=== PATIENT | female | born 1960 | race African-American/Black ===

== ENCOUNTER 2020-08-26 06:14 | Inpatient (IN) | payer OTHER ==
[2020-08-26] VITALS (13 sets, daily range): BP systolic 114–156; BP diastolic 61–82
[~2020-08-26] VITALS: Ht 160 cm; Wt 96.2 kg
[~2020-08-26 06:14] MED LIST: AMLODIPINE BESYL5 MG ORAL; GINKGO BILOBA120 M1 PO; MULTIVITAMINS1 EAC2 ORAL; TOPIRAMATE100 MG ORAL
[2020-08-26] MEDS ORDERED: ceFAZolin sod 1 GM in NS 55 ML IVPB ONE (07:00)
[2020-08-26] MEDS ORDERED: Vancomycin 1gm vial IVPB ONE ×2 (07:17→11:03)
[2020-08-26] MEDS ORDERED: Thrombin 5000 units TOPIC ONE (07:18)
[2020-08-26] MEDS ORDERED: Gelfoam Size TOPIC ONE ×2 (07:18→07:19)
[2020-08-26] MEDS ORDERED: Ropivacaine 5mg/ml Vial 30ml INJ ONE (07:18)
[2020-08-26] MEDS ORDERED: Bacitracin 50000 Units Vial ONE (07:19)
[2020-08-26] MEDS ORDERED: EPINEPHrine 1mg/1ml Amp ONE ×2 (07:19→11:08)
[2020-08-26] MEDS ORDERED: Lidocaine 1% Plain 30 ml INJ ONE (07:20)
[2020-08-26] MEDS ORDERED: Midazolam 2mg/2ml Inj ONE (07:27)
[2020-08-26] MEDS ORDERED: fentaNYL 100 mcg/2 mL IV ONE (07:27)
[2020-08-26] MEDS ORDERED: Lidocaine 1% MPF 10mg/ml 5ml ONE (07:27)
[2020-08-26] MEDS ORDERED: Rocuronium Bromide 50mg/5ml Inj IV ONE (07:36)
[2020-08-26] MEDS ORDERED: Succinylcholine 20mg/ml 10ml vial ONE (07:36)
[2020-08-26] MEDS ORDERED: LR 1000ml ONE (07:50)
[2020-08-26] MEDS ORDERED: Sterile Water Irrig 2000ml IRRIG ONE (07:50)
[2020-08-26] MEDS ORDERED: NS Irrig 2000ml IRRIG ONE (07:50)
[2020-08-26] MEDS ORDERED: Heparin 5000 units/ml inj ONE (07:59)
--- NOTE | 2020-08-26 09:08 | Pre-Procedure Note/Attestation ---
Pre-Procedure Note/Attestation Complete Prior to Procedure Procedure Narrative: ant/post fusion with decompression L5S1 Indications for Procedure Pre-Operative Diagnosis: Discopathy L5S1 Attestation I attest that I discussed the nature of the procedure; its benefits; risks and complications; and alternatives (and the risks and benefits of such alternatives), prior to the procedure, with the patient (or the patient's legal jewelry sales representative). I attest that, if there was a reasonable possibility of needing a blood transfusion, the patient (or the patient's legal jewelry sales representative) was given the [facility] standardized written summary, pursuant to the Remington Ghazala Blood Safety Act ([place] Health and Safety Code # 1645, as amended). I attest that I re-evaluated the patient just prior to the surgery and that there has been no change in the patient's H&P, except as documented below: Nilesh Christian MD Aug 26, 2020 09:08
--- NOTE | 2020-08-26 09:10 | Brief Operative Note ---
Immediate Post Operative Note Operative Note Pre-op Diagnosis: Discopathy L5S1 Procedure: Ant/post fusion L5S1 with decompression Post-op Diagnosis: same as pre-op Findings: consistent w/pre-op dx studies Surgeon: tangela Flow Specialist: jayce Additional Surgeons: Ilia vascular Anesthesiologist: anish Anesthesia: general Specimen: yes - disc Complications: none Condition: stable Fluids: 1L Estimated Blood Loss: minimal - 100 Drains: none Implant(s) used?: Yes - 4web ant cage and staaylinink Nilesh Christian MD Aug 26, 2020 09:10
[2020-08-26] MEDS ORDERED: Morphine Sulfate 10mg/ml Inj ONE (09:11)
--- NOTE | 2020-08-26 09:26 | Anethesia Preoperative Eval ---
Anesthesia Pre-op PMH/ROS General Date of Evaluation: Aug 26, 2020 Time of Evaluation: 07:40 Anesthesiologist: Vicky ASA Score: ASA 2 Mallampati Score Class I : Soft palate, uvula, fauces, pillars visible Class II: Soft palate, uvula, fauces visible Class III: Soft palate, base of uvula visible Class IV: Only hard plate visible Mallampati Classification: Class II Surgeon: Gino Diagnosis: Lumbar radiculopathy Surgical Procedure: Anterior and posterior discectomy fusion Anesthesia History: none Family History: no anesthesia problems Allergies: Coded Allergies: No Known Allergies (Unverified , 08/26/20) Medications: see eMAR Patient NPO?: Yes Past Medical History Cardiovascular: Reports: HTN - stable on meds; Denies: CAD, [place], valve dz, arrhythmia, other Pulmonary: Denies: asthma, COPD, SALBADOR, other Gastrointestinal/Genitourinary: Reports: GERD; Denies: CRI, ESRD, other Neurologic/Psychiatric: Reports: other - chronic pain; Denies: dementia, CVA, depression/anxiety, TIA Endocrine: Denies: DM, hypothyroidism, steroids, other HEENT: Denies: cataract (L), cataract (R), glaucoma, PAIMIUT (L), PAIMIUT (R), other Hematology/Immune: Denies: anemia, DVT, bleeding disorder, other Musculoskeletal/Integumentary: Denies: OA, RA, DJD, DDD, edema, other Other: obesity PMH Narrative: As above PSxH Narrative: Appendectomy, myomectomy Anesthesia Pre-op Phys. Exam Physician Exam Last Vital Signs Date Time Temp Pulse Resp B/P (MAP) Pulse Ox O2 Delivery O2 Flow Rate FiO2 08/26/20 06:58 Room Air 08/26/20 06:53 97.6 91 20 156/82 (106) 100 Constitutional: NAD Neurologic: CN 2-12 intact Cardiovascular: RRR, no M/R/G Respiratory: CTA Gastrointestinal: other - obesity Airway Exam Mallampati Score: Class II MO: full Neck: stiff ROM: limited Teeth: intact Dentures: no upper, no lower Anesthesia Pre-op A/P Labs see chart Studies Pre-op Studies: EKG - NSR Risk Assessment & Plan Assessment: ASA 2 Plan: GA with ETT, neuromonitoring Status Change Before Surgery: No Pre-Antibiotics Drug: Ancef 2gr Given Within 1 Hr of Incision: Yes Time Given: 07:50 Dominic Perry MD Aug 26, 2020 09:26
[2020-08-26] MEDS ORDERED: Acetaminophen (Non formulary) 100 ML IV ONE (09:30)
[2020-08-26] MEDS ORDERED: Glycopyrrolate 0.2mg/ml 1ml Vial ONE (11:01)
[2020-08-26] MEDS ORDERED: Bupivacaine 0.5% Inj 30 ml vial INJ ONE (11:56)
[2020-08-26] MEDS ORDERED: Hydromorphone 0.5mg/0.5ml inj IVP PRN (12:00)
[2020-08-26] MEDS ORDERED: Midazolam 2mg/2ml Inj IVP PRN (12:00)
[2020-08-26] MEDS ORDERED: Ketorolac 30mg Inj IV PRN (12:00)
[2020-08-26] MEDS ORDERED: DiphenhydrAMINE 50mg/ml Inj IVP PRN (12:00)
[2020-08-26] MEDS ORDERED: LR 1000ml 1,000 ML IVLG SCH (12:00)
[2020-08-26] MEDS ORDERED: Metoclopramide 10mg/2ml Inj IVP PRN ×3 (13:00→15:15)
--- NOTE | 2020-08-26 13:01 | Immediate Post-Op Evaluation ---
Immediate Post-Op Evalulation Immediate Post-Op Evalulation Procedure: L5-S1 anterior discectomy fusion with posterior decompression and interbody Date of Evaluation: Aug 26, 2020 Time of Evaluation: 13:00 IV Fluids: 1000 Blood Products: none Estimated Blood Loss: 100 Urinary Output: 150 Blood Pressure Systolic: 142 Blood Pressure Diastolic: 66 Pulse Rate: 86 Respiratory Rate: 22 O2 Sat by Pulse Oximetry: 99 Temperature (Fahrenheit): 98.6 Pain Score (1-10): 2 Nausea: No Vomiting: No Complications none Patient Status: reacts, patent, extubated, none Hydration Status: adequate Dominic Perry MD Aug 26, 2020 13:01
[2020-08-26] MEDS ORDERED: ceFAZolin sod 1 GM in D5W 55 ML IV SCH (14:00)
--- NOTE | 2020-08-26 14:08 | 48 Hour Post Anesthesia Eval ---
Post Anesthesia Evaluation Procedure: L5-S1 anterior discectomy fusion with posterior decompression and interbody Date of Evaluation: Aug 26, 2020 Time of Evaluation: 15:12 Blood Pressure Systolic: 128 0: 66 Pulse Rate: 73 Respiratory Rate: 18 Temperature (Fahrenheit): 97.8 O2 Sat by Pulse Oximetry: 100 Airway: patent Nausea: No Vomiting: No Pain Intensity: 3 Hydration Status: adequate Cardiopulmonary Status: Stable Mental Status/LOC: patient returned to baseline Follow-up Care/Observations: 0 Post-Anesthesia Complications: 0 Follow-up care needed: N/A Bethel Sandhu MD Aug 26, 2020 14:08
--- NOTE | 2020-08-26 14:12 | Diagnostic Imaging Report ---
Indication: Intraoperative, pain Technique: Intraoperative images Comparison: none Findings: Intraoperative images document placement of a disc spacer and anterior fusion hardware at L5-S1 Impression: Intraoperative imaging, as described
[2020-08-26] MEDS ORDERED: D5 1/2NS 1,000 ML IV SCH (14:24)
--- NOTE | 2020-08-26 14:30 | NUR ---
NURSE NOTES: Received report from Anne RN, pt a/a/o laying in bed with no signs of distress or other issues at this time. anterior and posterior surgical dressing dry and intact. SCD's in place. IS at bed side. IV on the left FA gauge 20. running D5 1/2 NS @100ml/hr. we will review orders and will carry on as indicated. call light within reach, bed in lowest position. side rales up x2. I will f/u as needed.
--- NOTE | 2020-08-26 14:44 | Operative Note - Dictated ---
DATE OF OPERATION: 08/26/2020 SURGEON: Nilesh Christian MD. LINING FINISHER: Nj Curran PA-C. ANESTHESIOLOGIST: Dominic Perry MD. ANESTHESIA TYPE: General endotracheal anesthesia. PREOPERATIVE DIAGNOSES: 1. Diskopathy L5-S1. 2. Status post anterior lumbar interbody fusion, L5-S1. POSTOPERATIVE DIAGNOSES: 1. Diskopathy L5-S1. 2. Status post anterior lumbar interbody fusion, L5-S1. PROCEDURE: 1. Posterior fusion, L5-S1. 2. Instrumentation interspinous, L5-S1. 3. Use of allograft material. 4. Use of fluoroscopy. 5. Neurodiagnostic monitoring. ESTIMATED BLOOD LOSS: Minimal. COMPLICATIONS: None. OVERALL FLUIDS: One liter. INDICATIONS: The patient is a 60-year-old with intractable back pain. Surgical intervention was recommended after she had failed conservative care. She has advanced diskopathy L5-S1, mild discopathy at L4-L5. Remainder of disks appeared intact There is notable L5-S1 neural foraminal stenosis. The patient was explained the risks, benefits of procedure. Pros, cons, risks and benefits were discussed. She elected to proceed. The risks were described to be but not limited to those of bleeding, infection, damage to nerves, vessels, tendons, anesthetic risk, allergic reaction, aspiration, possibly , possible pseudoarthrosis, possible need for additional surgery, dural leak, and intractable nerve pain were discussed. The patient elected to proceed. OPERATIVE PROCEDURE IN DETAIL: Under benefits of general anesthesia, the patient was turned prone onto a Steve frame. All bony prominences were well padded. The back was prepped and draped in usual sterile fashion. Under fluoroscopic guidance, a 2 inch incision was chosen at L5-S1. The skin was infiltrated with lidocaine with epinephrine. Incision was carried down through subcutaneous down to the spinous processes at L5 and S1. The incision was then carried out along each side of the spinous process at L5-S1 and subperiosteal dissection was carried out at L5-S1. Fluoroscopically, the level was confirmed. At this point, the interspinous region was identified and the interspinous ligament was removed. An 8 mm StabiLink interspinous fusion device was chosen. At this point, copious irrigation was performed. Decortication of the facet joint of L5-S1 was performed bilaterally as well as the decortication of the superficial lamina of L5 and S1. At this point, StabiLink was inserted and compressed to appropriate level. Excellent overall stability was finally obtained. At this point, decision was made to close. Additional Signafuse was inserted into the lateral gutters through the facet joint and supra laminar region. At this point, decision was made to close. Fascia was repaired using #1 Vicryl. Prior to fascial closure, the patient did receive 500 mg of vancomycin and once the fascia was repaired using #1 Vicryl, subcutaneous closure was performed, and additional 250 of vancomycin was placed suprafascial. Subcutaneous closure using 2-0 Vicryl and 4-0 Monocryl for final skin closure. The patient then received 10 mL of Marcaine 0.5% without epinephrine. At this point, sterile dressing was applied. The patient was turned onto her back and at time of this dictation was awaiting extubation. Nilesh Ashok Christian DR: Twan JOB#: [id number] CC: EFRAIN
--- NOTE | 2020-08-26 14:45 | Operative Note - Dictated ---
SURGEON: Nilesh Christian MD. VASCULAR CO-SURGEON: Leopoldo Morillo MD. ANESTHESIOLOGIST: Dominic Perry MD. ANESTHESIA: General endotracheal anesthesia. PREOPERATIVE DIAGNOSIS: L5-S1 discopathy with advanced discogenic collapse with up-down neural foraminal stenosis. POSTOPERATIVE DIAGNOSIS: L5-S1 discopathy with advanced discogenic collapse with up-down neural foraminal stenosis. PROCEDURE: 1. Wide and radical diskectomy anteriorly, L5-S1 with interbody fusion using 4WEB structural cage. 2. Use of local autograft. 3. Use of Signafuse bone graft substitute. 4. Anterior instrumentation using anterior plate. 5. Use of fluoroscopy. 6. Indirect decompression of neural foramen at L5-S1. ESTIMATED BLOOD LOSS: Minimal. COMPLICATIONS: None. INDICATIONS: The patient is a very pleasant 60-year-old with fairly significant and intractable back pain. She was counseled with regards to her options after conservative care had failed. She elected to proceed with surgical intervention. Pros and cons, risks and benefits of surgery were discussed. She elected to proceed. OPERATIVE PROCEDURE IN DETAIL: The patient was taken to the operating suite, Cesar catheter was placed, intubated, and general anesthesia was induced. At this point, the abdomen was prepped and draped in usual sterile fashion. Anterior retroperitoneal approach was performed and will be dictated separately by Dr. Morillo. At this point, the retractors were put into place and fluoroscopically L5-S1 level was confirmed. A 15 blade was then used to incise the anterior annulus, endplate dissectors were then used and advanced discogenic collapse was noted. Serial dilators were put into place with interbody distraction devices so as to obtain gradual distraction of the disk space. The curved curette was then utilized as well as the straight curettes to remove the disc as well as the cut latch in its endplates. Once satisfied with the distraction of the disk space as well as removal of the disc as well as the posterior osteophytes and obtaining an excellent up-down of foraminal decompression and osteotome was used to osteotomize the anterior Inferior L5 osteophyte as well as a portion of the bone. This allowed for a more accessible interbody space with the use of the osteotome. The bone graft was morselized and used for implantation later into the lateral gutters. At this point, the appropriate sized 4 WEB cage small footprints measuring 12 mm in height and 12 degrees of lordosis was chosen. It was packed with Signafuse bone graft material. It was inserted into the disk space. At this point, a Fang plate was then inserted and all screw holes were serially drilled and the appropriate 25 mm screws placed. Excellent AP, lateral projections demonstrated mormonism of lordosis, disc height as well as placement of the interbody fusion device. Decision was then made to close after copious irrigation was performed. Please note that a bone graft material was placed to the right and to the left of the interbody fusion device. The closure will be dictated separately by Dr. Morillo. Please note that due to the patient's obesity 500 mg of vancomycin powder was placed suprafascial. Once closure was complete, the patient was prepped for the posterior procedure. Sponge and needle counts were correct. [facility] Ashok Christian DR: DENIA JOB#: [id number] CC: EFRAIN
--- NOTE | 2020-08-26 16:45 | Operative Note - Dictated ---
DATE OF OPERATION: 08/26/2020 VASCULAR SURGEON: Leopoldo Morillo M.D. SPINE SURGEON: Nilesh Christian M.D. PREOPERATIVE DIAGNOSIS: Lumbar pain. POSTOPERATIVE DIAGNOSIS: Lumbar pain. PROCEDURE: Anterior retroperitoneal exposure of L5-S1 vertebral interspace, right retroperitoneal approach. INDICATION: The patient is a very pleasant woman who has been seen prior to surgery anterior spine operation, L5-S1. She has no prior history of deep venous thrombosis or bleeding complications. She was made aware of the risks of vascular surgery including vascular injury, possible need for blood transfusion, deep venous thrombosis. DESCRIPTION OF FINDINGS: A low transverse incision was used. A right retroperitoneal approach was used. There was no peritoneal or ureteral violation. There was no vascular injury. Exposure of L5-S1 was obtained below the iliac bifurcation confirmed using fluoroscopy. On completion, the peritoneum and ureter were intact. The iliac vessels were intact. Blood loss was less than 100 mL. COMPLICATIONS: None. DESCRIPTION OF PROCEDURE: The patient was taken to the operative room. General anesthesia was induced. Antibiotics were given. The patient's abdomen was prepped and draped. Appropriate time-out for procedure was taken. A low transverse incision was made below the pubic symphysis in natural skin crease. Flaps were raised superiorly. The anterior fascia was incised longitudinally in the midline. A plane was identified posterior to the right rectus abdominis and developed posterolaterally towards the patient's right. The retroperitoneal space was bluntly entered below the arcuate line. The peritoneum and ureter were mobilized towards the patient's left exposing the right common iliac artery and vein. Blunt dissection was carried medially to the right iliac vessels until the anterior surface of L5-S1 was palpated. The peritoneum and ureter were then mobilized towards the patient's left exposing the anterior surface of the L5-S1. The OMNI retractor blade was placed. The medial border left to the vein was above the level of L5-S1. The middle sacral vessels were ligated with bipolar electrocautery and divided and this allowed us to place the OMNI retractor in place. Fluoroscopy was then used to confirm the appropriate level and instrumentation performed at L5-S1, dictated separately. On completion, retractor was gently moved. The peritoneum and ureter were intact. Iliac vessels were intact. Anterior fascia was then closed using #1 PDS in running fashion, and the skin and subcutaneous tissue were closed with 3-0 Vicryl and 4-0 Monocryl running subcuticular closure technique. Leopoldo Morillo M.D. DR: DOTTIE JOB#: [id number] CC:
--- NOTE | 2020-08-26 17:08 | NUR ---
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
[2020-08-26] MEDS: Docusate 100mg cap ORAL SCH (17:25)
[2020-08-26] MEDS: D5 1/2NS 1,000 ML IV SCH ×2 (17:25→23:48)
[2020-08-26] MEDS: ceFAZolin sod 1 GM in D5W 55 ML IV SCH (17:25)
[2020-08-26] MEDS ORDERED: Docusate 100mg cap ORAL SCH ×2 (18:00)
[2020-08-26] MEDS ORDERED: LORazepam 0.5mg tab ORAL PRN ×2 (18:30→21:00)
[2020-08-26] MEDS ORDERED: HYDROcodone/Acetamin 10/325 tab ORAL PRN (18:30)
[2020-08-26] MEDS ORDERED: Morphine Sulfate 2mg/ml Inj(IV/IM USE ONLY) IVP PRN (18:30)
--- NOTE | 2020-08-26 18:41 | Cardiology Progress Note ---
Assessment/Plan Assessment/Plan full note dicated post op nausea and sore throat probaley affect of meds / sedation and aneshtesia Objective Last 24 Hour Vital Signs Date Time Temp Pulse Resp B/P (MAP) Pulse Ox O2 Delivery O2 Flow Rate FiO2 08/26/20 17:26 78 141/76 08/26/20 16:00 97.6 88 18 131/67 (88) 98 08/26/20 15:30 98.0 86 18 130/68 (88) 98 08/26/20 15:00 97.6 71 18 132/63 (86) 98 08/26/20 14:30 97.5 73 18 128/64 100 Room Air 08/26/20 14:08 73 18 100 08/26/20 14:00 71 15 123/65 100 Room Air 08/26/20 13:45 70 16 126/62 100 Room Air 08/26/20 13:30 73 18 128/68 100 Nasal Cannula 3 08/26/20 13:20 74 20 114/62 100 Simple Mask 6 08/26/20 13:10 77 21 122/61 100 Simple Mask 6 08/26/20 13:01 86 22 99 08/26/20 13:00 75 20 128/68 100 Simple Mask 6 08/26/20 12:51 99.1 88 22 122/66 100 Simple Mask 6 08/26/20 06:58 Room Air 08/26/20 06:53 97.6 91 20 156/82 (106) 100 Intake and Output 08/25/20 08/26/20 19:00 07:00 # Voids 1 Jesus Alberto Huizar MD Aug 26, 2020 18:41
[2020-08-26] MEDS ORDERED: Chloraseptic Spray 20mL Bottle ORAL SCH (19:00)
--- NOTE | 2020-08-26 19:20 | NUR ---
NURSE HAND-OFF: Important Events on Shift: s/p anterior and posterior Spinal Fusion L5-S1. Patient Status: stable/ full code Diet: NPO x meds and ice chips Pending Orders: [] Pending Results/Labs:am labs Pending MD notification:[] Latest Vital Signs: Temperature 97.6 , Pulse 78 , B/P 141 /76 , Respiratory Rate 18 , O2 SAT 98 , Room Air, O2 Flow Rate 3 . Vital Sign Comment: stable Latest Ogden Fall Score: 20 Fall Risk: Low Risk Safety Measures: Call light , Bed Alarm , Side Rails Side Rails x1, Bed position . Fall Precautions: needs supervision, due to recent sx. Report given to Sohan DALTON, pt in stable condition.
[2020-08-26] MEDS ORDERED: Chloraseptic Spray 20mL Bottle ORAL PRN (19:30)
--- NOTE | 2020-08-26 20:08 | NUR ---
NURSES NOTE: Received pt from [facility]. Rounds made. Pt found in bed, sleeping. Awakens to name. A/OX4, pt answers all questions appropriately. No outward s/s of distress noted. Breathing pattern is even and unlabored on RA. Pt denies having any pain or discomfort at this time. Dressing, anterior lower abdomen and posterior lower back is dry, intact, and clean. IV L FA, is intact, infusing IVF without incident. No urination as of yet after selby D/C. Will monitor. Nuero checks to be completed through out NOC shift. All due medications will be administered. Bed at lowest level, call light within reach. Pt will continue to be monitored.
--- NOTE | 2020-08-26 20:15 | Consultation ---
DATE OF CONSULTATION: 08/26/2020 NOTE: INCOMPLETE DICTATION CARDIOLOGY CONSULTATION CONSULTING PHYSICIAN: Jesus Alberto Huizar MD REFERRING PHYSICIAN: Nilesh Christian MD REASON FOR REFERRAL: Postoperative medical care. HISTORY OF PRESENT ILLNESS: Patient is a middle-aged female, 60 years old who has undergone spine surgery by Dr. Christian and I have been asked to take care of her postoperatively from medical point of view. Patient is doing relatively well. At this time has slight amount of nausea. There is no chest pain. No shortness of breath. No palpitations. No dizziness. She does feel there is some discomfort in her throat that makes her want to cough at times and when she coughs she has pain at the site of surgery. She otherwise denies any other discomfort. PAST MEDICAL HISTORY: Positive for hypertension and spine disorder for which she has undergone surgery for today. No history of heart attack. No cancer. No stroke. No hepatitis or tuberculosis. She is not a diabetic. She does have high blood pressure and hyperlipidemia. No HIV/AIDS or blood clots or any bleeding disorders or kidney or liver problems or thyroid problems, anemia, or arthritis past medical problems. FAMILY HISTORY: Father is alive. Mother is alive. Brother and 2 sisters healthy. Family history of high blood pressure. SOCIAL HISTORY: She is a former smoker, quit many years ago. Socially drinks alcoholic beverages and denies any drugs. ALLERGIES: She has no allergies to medications. REVIEW OF SYSTEMS: GASTROINTESTINAL: As mentioned, some nausea, but no vomiting. No bowel movement. GENITOURINARY: Negative. PULMONARY: Negative. CONSTITUTIONAL: Negative. NEUROLOGICAL: She actually feels better in her lower extremities after the surgery despite the fact that she is lying down in the position she is. PAST SURGICAL HISTORY: Positive for history of hysterectomy, appendectomy previously. MEDICATIONS AT HOME: Include amlodipine 10 mg a day. PHYSICAL EXAMINATION: GENERAL: Shows to be a middle-aged female, in no respiratory distress. NECK: Supple. No jugular venous distention. No abdominojugular reflux noted. LUNGS: Anteriorly are clear to auscultation and percussion. There are no abnormal breath sounds. No wheezes. No rhonchi. No stridor of any kind noted. CARDIAC: Regular rate and rhythm. ABDOMEN: Soft, obese. She does have bowel sounds. EXTREMITIES: There is no edema. She has pneumatic compression stockings in place. LABORATORY VALUES: None available postop. The patient's preop laboratories from Dr. Mendoza were reviewed. A chest x-ray was fairly unremarkable. Blood tests was negative. Her sodium 142, potassium 4.8, chloride 110, bicarb 23, BUN of 19, creatinine 0.98. No other significant abnormalities. TSH of 1.23. Hemoglobin A1c of 6.5. Her white count 9, hemoglobin 12.4, and platelet count 380. INR is 1 ,PTT of 31.6. ASSESSMENT AND PLAN: 1. Advanced disc collapse at L5-S1, now status post anterior posterior spinal fusion. 2. Hypertension. 3. Sore throat. 4. Nausea postop, likely secondary to sedation and pain medication. Dr. Christian, this patient was seen in cardiac consultation. Jesus Alberto Huizar M.D. DR: NESTOR JOB#: [id number] CC:
--- NOTE | 2020-08-26 20:45 | Consultation ---
DATE OF CONSULTATION: 08/26/2020 CONSULTING PHYSICIAN: Jovanny Reynolds M.D. REFERRING PHYSICIAN: Nilesh Christian M.D. REASON FOR CONSULTATION: Acute pain consult. Dr. Nilesh Christian, Thank you kindly for consulting me to evaluate and render an opinion as to how to proceed in the management of the patient's acute postoperative lumbar spine pain after her extensive anterior-approach and posterior-approach lumbar spine fusion surgery with instrumentation today. The patient is a pleasant 60-year-old obese woman, who injured her lumbar spine in a work-related injury. She complained significant postoperative discomfort after her extensive lumbar spine fusion surgery with instrumentation. You consulted me to help with her postoperative care and pain management. I saw the patient at the bedside with the nurse RN, Gordo. I discussed the case with yourself, Dr. Christian along with the recovery room nurse, Tiara and the hospital pharm D, Jovanny Nicholas. I spent over 75 minutes in consultation with an additional 30 minutes in medical record review. Multiple records were reviewed including utilization review and surgical authorization by Lopez utilization review authorizing lumbar spine fusion surgery with hospitalization as certified. Further record review included preoperative history and physical by Dr. Navjot Mendoza dated 08/26/2020 along with diagnostic testing including laboratory studies, 12-lead EKG, and chest x-ray. Multiple records were reviewed from today's date of surgery at [facility] today 08/26/2020 including consent for surgical treatment, consent for anesthesia, consent for blood products, medication administration record, medication reconciliation order form, PACU record, PACU orders, anesthesia record, pre- and post anesthesia evaluation record, guidelines for prophylactic antibiotics, guidelines for DVT prophylaxis, implant log, postoperative spine surgery report and postoperative spine surgical orders by Dr. Nilesh Christian, interdisciplinary plan of care, surgical invasive procedure check list, Thrasher-Raphael diagram for cognitive disability. PAST MEDICAL HISTORY: 1. Acute postoperative lumbar spine pain, status post anterior-approach and posterior-approach lumbar spine fusion surgery with instrumentation by Dr. Nilesh Christian 08/2020. 2. Work-related injury. 3. Obesity. 4. Hypertension. PAST SURGICAL HISTORY: Hysterectomy, appendectomy. MEDICATIONS: At home, vitamins, Norvasc, Topamax. ALLERGIES: No known drug allergies. SOCIAL HISTORY: The patient lives at home with her 13-year-old teenage son, who will be able to assist with activities of daily living. She also has extended family in [place] and local sister. REVIEW OF SYSTEMS: Per Dr. Huizar. FAMILY HISTORY: Hypertension, obesity. PHYSICAL EXAMINATION: GENERAL: Age 60, height 5 feet 3 inches, weight 94 kilograms, body mass index 38. The patient is pleasant, in no acute distress. VITAL SIGNS: Afebrile, pulse 78, respirations 18, blood pressure 141/76, oxygen saturation 98% on supplemental oxygen. HEENT: Normocephalic, atraumatic. EXTREMITIES: Moving all extremities x4 with 5/5 dorsiflexion and 5/5 plantar flexion in the bilateral lower extremities. NEUROLOGIC: Detailed neurologic exam deferred to Dr. Christian. CHEST: Barrel chested with obesity. Positive bilateral crackles likely secondary to postoperative atelectasis and obesity. No wheezes, rales, rhonchi, or accessory muscle use noted. The patient appears non-toxic. HEART: Regular rate and rhythm. ABDOMEN: Obese. Absent bowel sounds. Tender by incision area with positive pannus. Significant pain with log-rolling. Minimal paraspinal muscle spasms appreciated. GENITOURINARY: Deferred to Dr. Huizar. BREASTS: Deferred to Dr. Huizar. DIAGNOSTIC TESTING: Shows 12-lead EKG preoperatively, heart rate 78, no evidence for acute cardiac ischemia. Preoperative chest x-ray dated 08/21/2020 shows no acute cardiopulmonary process. Laboratory studies from 08/26/2020 shows preoperative COVID-19 testing negative. Glucose 96. Sodium 142, potassium 4.8, chloride 110, bicarb 23, BUN 19, creatinine 1.0. Calcium 9.9. Total protein 7.2, albumin 4.3. AST 12, ALT 10, alkaline phosphatase 82, total bilirubin 0.4. TSH normal at 1.2. Glycosylated hemoglobin high normal at 6.5. White count 9, hematocrit 37, platelets 390. INR 1.0, PTT 32. IMPRESSION: 1. Acute postoperative lumbar spine pain, status post anterior-approach and posterior-approach lumbar spine fusion surgery with instrumentation by Dr. Nilesh Christian 08/2020. 2. Work-related injury. 3. Obesity. 4. Hypertension. TREATMENT RECOMMENDATIONS: After examining the patient at the bedside and discussing the case with yourself, Dr. Bingham along with the hospital pharmacist and nursing team, I have recommended the following analgesic plan. The patient has had several surgeries in the past, but cannot recall which medications work ideally. She believes she has tolerated morphine in the past without any adverse side effects. I will start with morphine 2 mg intravenously every four hours p.r.n. for moderate pain. I will double the dose to 4 mg intramuscularly every three hours p.r.n. for severe pain. I have chosen the intramuscular dose for better safety profile and less risk for respiratory depression in this obese woman. The patient does not recall any adverse effects to oxycodone or hydrocodone. We will trial her on [place] 10/325 one tablet orally every three hours p.r.n. for mild pain once she is able to tolerate oral intake. After her ALIF procedure, we will wait for improvement in bowel function prior to advancing her diet. Currently, the patient has no nausea symptoms. I have made available Zofran 4 mg intravenously every 4 hours p.r.n. as a rescue anti-emetic. I have ordered Benadryl 25 mg orally every six hours p.r.n. for any itching complaints. The patient does drink alcohol socially, beer, with her [place] brothers from time to time. I have ordered a dose of Ativan 0.5 mg orally every six hours p.r.n. for muscle spasms or insomnia. The patient states that she has trialed many different anti-muscle relaxant agents such as Flexeril and Soma, none have any effect. Perhaps, the low-dose benzodiazepine may have benefit. I will empirically place the patient on b.i.d. Pepcid for GI ulcer prophylaxis and I have ordered p.r.n. dose of Mylanta 30 mL q.6 h. in case of any GERD symptom exacerbation. I have asked the nurse to place Chloraseptic spray at the bedside if the patient is complaining of sore throats postoperatively. With her severe obesity, I have asked the nursing team to place an incentive spirometer at the bedside as soon as possible to encourage good pulmonary toilet. Sequential compression pneumatic devices have been put in place, for mechanical DVT prophylaxis. Hopefully, the patient will be able to ambulate well with physical therapy starting tomorrow. She already has a back brace at the bedside. Dr. Huizar will manage the patient's hypertensive issues. The patient does use Topamax and I have ordered p.r.n. dose of Fioricet one tablet orally every eight hours as needed in case of any headache symptoms. Tylenol is available as an anti-pyretic. At the time of the patient's visit, she will need a prescription for appropriate pain medications. Jovanny Reynolds M.D. DR: BERNARDO JOB#: [id number] CC:
[2020-08-27] VITALS: BP 151/77
[2020-08-27] MEDS: ceFAZolin sod 1 GM in D5W 55 ML IV SCH ×2 (02:53→10:07)
[2020-08-27 04:00] VITALS: BP 153/75
[2020-08-27 06:12] LABS: ANION GAP 10 mmol/L (5-15); BLOOD UREA NITROGEN 12 mg/dL (7-18); CALCIUM 8.3 MG/DL (8.5-10.1); CARBON DIOXIDE 22 MMOL/L (21-32); CHLORIDE 106 MMOL/L (98-107); POTASSIUM 3.6 MMOL/L (3.5-5.1); SODIUM 138 MMOL/L (136-145)
--- NOTE | 2020-08-27 06:45 | NUR ---
NURSE HAND-OFF: Important Events on Shift:[Pt eventually urinated x3. Pt did not want to ambulate to BR. Encouraged pt to sit and dangle feet at bedside; however not interested. Prefer to work with PT] Patient Status: [STABLE] Diet: [NPO] Pending Orders: [NONE] Pending Results/Labs:[NONE] Pending MD notification:[NONE] Latest Vital Signs: Temperature 98.4 , Pulse 68 , B/P 153 /75 , Respiratory Rate 18 , O2 SAT 94 , Room Air, O2 Flow Rate 3 . Vital Sign Comment: [WNL] Latest Ogden Fall Score: 20 Fall Risk: Low Risk Safety Measures: Call light Within Reach, Bed Alarm Zone 1, Side Rails Side Rails x2, Bed position Low and Locked. Fall Precautions: Yellow Socks Patient Fall Education Report given to [].
--- NOTE | 2020-08-27 07:44 | NUR ---
HAND OFF: Report given to SHA Roto
--- NOTE | 2020-08-27 07:45 | NUR ---
NURSE NOTES: Pt lying in bed w/bed in lowest position and call light within reach. Pt A&Ox4, VSS, and in no apparent distress; pt c/o 6/10 pain but would not like pain medication at this time. IV site intact/asymptomatic w/IVF infusing; anterior & posterior surgical dressings C/D/I; bowel sounds hypoactive but pt still not passing gas. Pt scheduled to work w/PT this morning. Will continue to monitor.
[2020-08-27 08:00] VITALS: BP 149/72
--- NOTE | 2020-08-27 09:07 | Orthopedic Spine Progress Note ---
Ortho Spine - Progress Note Subjective Symptoms: c/o post-op back pain, improved - as compared to pre-op Additional Comments: Nausea, no vomit Objective Vital Signs: Last 24 Hour Vital Signs Date Time Temp Pulse Resp B/P (MAP) Pulse Ox O2 Delivery O2 Flow Rate FiO2 08/27/20 08:00 98.3 75 18 149/72 (97) 96 08/27/20 04:00 98.4 68 18 153/75 (101) 94 08/27/20 00:00 98.1 76 17 151/77 (101) 97 08/26/20 21:00 Room Air 08/26/20 20:00 98.4 70 17 141/74 (96) 99 08/26/20 17:26 78 141/76 08/26/20 16:00 97.6 88 18 131/67 (88) 98 08/26/20 15:30 98.0 86 18 130/68 (88) 98 08/26/20 15:00 97.6 71 18 132/63 (86) 98 08/26/20 14:30 97.5 73 18 128/64 100 Room Air 08/26/20 14:08 73 18 100 08/26/20 14:00 71 15 123/65 100 Room Air 08/26/20 13:45 70 16 126/62 100 Room Air 08/26/20 13:30 73 18 128/68 100 Nasal Cannula 3 08/26/20 13:20 74 20 114/62 100 Simple Mask 6 08/26/20 13:10 77 21 122/61 100 Simple Mask 6 08/26/20 13:01 86 22 99 08/26/20 13:00 75 20 128/68 100 Simple Mask 6 08/26/20 12:51 99.1 88 22 122/66 100 Simple Mask 6 I&O: Intake and Output 08/26/20 08/27/20 19:00 07:00 Intake Total 300 ml Output Total 150 ml Balance 150 ml Intake Oral 100 ml IV Total 200 ml Output Urine Total 150 ml # Voids 3 Wound: clean, intact Drains: none Neuro Status: normal Assessment Procedure Performed: Ant/post fusion L5S1 with decompression Plan Plan: PT, pain management Additional Comments: cont NPO until BS and Nausea resolves Nilesh Christian MD Aug 27, 2020 09:07
[2020-08-27] MEDS: Docusate 100mg cap ORAL SCH ×2 (10:07→18:19)
[2020-08-27] MEDS: Topiramate 100mg tab ORAL SCH (10:07)
[2020-08-27] MEDS: D5 1/2NS 1,000 ML IV SCH ×2 (10:08→18:20)
--- NOTE | 2020-08-27 11:12 | 48 Hour Post Anesthesia Eval ---
Post Anesthesia Evaluation Procedure: L5-S1 anterior discectomy fusion with posterior decompression and interbody Date of Evaluation: Aug 27, 2020 Time of Evaluation: 11:11 Blood Pressure Systolic: 148 0: 76 Pulse Rate: 68 Respiratory Rate: 20 Temperature (Fahrenheit): 97.6 O2 Sat by Pulse Oximetry: 98 Airway: patent Nausea: No Vomiting: No Pain Intensity: 3 Hydration Status: adequate Cardiopulmonary Status: stable Mental Status/LOC: patient returned to baseline Follow-up Care/Observations: n/a Post-Anesthesia Complications: none Follow-up care needed: N/A Dominic Perry MD Aug 27, 2020 11:12
[2020-08-27 12:00] VITALS: BP 149/74
--- NOTE | 2020-08-27 13:19 | Pain Management Progress Note ---
Allergies: Coded Allergies: No Known Allergies (Unverified , 08/26/20) Vitals Vital Signs Date Time Temp Pulse Resp B/P (MAP) Pulse Ox O2 Delivery O2 Flow Rate FiO2 08/27/20 12:00 97.3 70 18 149/74 (99) 97 08/27/20 11:12 68 20 98 08/27/20 10:07 75 149/72 08/27/20 09:00 Room Air 08/27/20 08:00 98.3 75 18 149/72 (97) 96 Medications Current Medications Acetaminophen (Tylenol) 650 mg Q4H PRN ORAL For Headache; Start 08/26/20 at 15:15; Stop 09/25/20 at 15:14 Acetaminophen (Tylenol) 650 mg Q6H PRN ORAL Temp >100.5; Start 08/26/20 at 18:30; Stop 09/25/20 at 18:29 Acetaminophen/ Butalbital/ Caffeine (Fioricet) 1 tab Q8H PRN ORAL Headache; Start 08/26/20 at 18:30; Stop 09/25/20 at 18:29 Acetaminophen/ Hydrocodone Bitart ([place] 10/325) 1 tab Q3H PRN ORAL Mild Pain (Pain Scale 1-3) Last administered on 08/26/20at 21:07; Start 08/26/20 at 18:30; Stop 09/02/20 at 18:29 Al Hydroxide/Mg Hydroxide (Mylanta) 30 ml Q6H PRN ORAL gerd; Start 08/26/20 at 18:30; Stop 09/25/20 at 18:29 Amlodipine Besylate (Norvasc) 5 mg BID ORAL Last administered on 08/27/20at 10:07; Start 08/26/20 at 18:00; Stop 09/25/20 at 17:59 Dextrose/Sodium Chloride 1,000 ml @ 125 mls/hr Q8H IV Last administered on 08/27/20at 10:08; Start 08/26/20 at 15:15; Stop 09/25/20 at 15:14 Diphenhydramine HCl (Benadryl) 25 mg Q6H PRN ORAL Itching; Start 08/26/20 at 18:30; Stop 09/25/20 at 18:29 Docusate Sodium (Colace) 100 mg TWICE A DAY ORAL Last administered on 08/27/20at 10:07; Start 08/26/20 at 18:00; Stop 09/25/20 at 17:59 Famotidine (Pepcid) 20 mg BID ORAL Last administered on 08/27/20at 10:06; Start 08/27/20 at 09:00; Stop 11/25/20 at 08:59 Lorazepam (Ativan) 0.5 mg Q6H PRN ORAL spasm; Start 08/26/20 at 18:30; Stop 09/02/20 at 18:29 Lorazepam (Ativan) 0.5 mg QHS PRN ORAL Insomnia; Start 08/26/20 at 21:00; Stop 09/02/20 at 20:59 Morphine Sulfate (Morphine Sulfate) 2 mg Q3H PRN IM Moderate Pain (Pain Scale 4-6); Start 08/27/20 at 13:04; Stop 09/03/20 at 13:03 Morphine Sulfate (Morphine Sulfate) 4 mg Q3H PRN IM Severe Pain (Pain Scale 7- 10); Start 08/26/20 at 18:30; Stop 09/02/20 at 18:29 Ondansetron HCl (Zofran) 4 mg Q4H PRN IVP Nausea & Vomiting Last administered on 08/27/20at 10:06; Start 08/26/20 at 18:30; Stop 09/25/20 at 18:29 Phenol/Menthol (Chloraseptic) 1 spray Q2H PRN ORAL sore throat Last administered on 08/26/20at 18:37; Start 08/26/20 at 19:30; Stop 11/24/20 at 19:29 Topiramate (Topamax) 100 mg DAILY ORAL Last administered on 08/27/20at 10:07; Start 08/27/20 at 09:00; Stop 10/11/20 at 08:59 Laboratory Laboratory Tests 08/27/20 04:00: Sodium Level 138, Potassium Level 3.6, Chloride Level 106, Carbon Dioxide Level 22, Anion Gap 10, Blood Urea Nitrogen 12, Creatinine 1.0, Estimat Glomerular Filtration Rate > 60, Glucose Level 142H, Calcium Level 8.3L Plan: I spent over sixty minutes in consultation today. Patient seen with daytime nurse Dk & overnight. Discussed with surgeon Dr Christian. No Hemovac drain. Voiding urine well; discouraged bedpan use. MAR medication list reviewed. Pt rather stoic. Mild nausea after norco last night. Will switch to po oxy-IR to test for better tolerability. While NPO, will continue prn ativan, APAP, and morphine. NPO diet after ALIF. Continue IV fluids for hydration. Await flatus. GI: No BS No flatus No BM Encourage incentive spirometer usage. Encourage advancing ambulation with physical therapy as tolerated. I asked RN to have FWW left at bedside to encourage out of bed. SCDs for mechanical prophylaxis against deep venous thrombosis and PEs. Discussed discharge planning with RNs. Pt lives with 13yo son, and has her own siblings locally as well to assist with ADL. Rx will be needed for outpatient pain medication usage. Jovanny Reynolds MD Aug 27, 2020 13:19
[2020-08-27] MEDS: Morphine Sulfate 2mg/ml Inj(IV/IM USE ONLY) IM PRN ×2 (13:22→19:26)
--- NOTE | 2020-08-27 13:45 | NUR ---
CASE MANAGEMENT:REVIEW SI;POD #1 ANTERIOR/POSTERIOR FUSION OF L5/S1 WITH DECOMPRESSION 98.4 75 20 153/75 94% ON RA BG 142 CA 8.3 IS;MORPHINE IM Q3 PRN PEPCID PO BID ZOFRAN IV Q4 CEFAZOLIN IV Q8 NORVASC PO BID IVF D5NS @ 1256 ML/HR MED SURG STATUS DCP;FROM HOME PLAN; CONTINUE NPO UNTIL BOWEL SOUNDS AND NAUSEA RESOLVE
--- NOTE | 2020-08-27 15:01 | NUR ---
P.T Note: P.T evaluation completed and tx initiated per spinal protocol. Please refer to P.T evaluation for current functional status.
[2020-08-27 16:00] VITALS: BP 147/71
--- NOTE | 2020-08-27 18:36 | Cardiology Progress Note ---
Assessment/Plan Assessment/Plan 1. Advanced disc collapse at L5-S1, now status post anterior posterior spinal fusion. 2. Hypertension. 3. Sore throat. 4. Nausea postop, likely secondary to sedation and pain medication. nause improved soere thorat resolved walked 5 time no bm no flatus dvt ppx with pnuematic stocking mabualte with pt diet whe has flatus and no nausea pain management Subjective Cardiovascular: Reports: other - no soere throat ; Denies: chest pain, lightheadedness, palpitations Respiratory: Denies: cough, shortness of breath Gastrointestinal/Abdominal: Reports: abdominal pain, nausea Genitourinary: Denies: burning Objective Last 24 Hour Vital Signs Date Time Temp Pulse Resp B/P (MAP) Pulse Ox O2 Delivery O2 Flow Rate FiO2 08/27/20 18:19 74 147/71 08/27/20 16:00 98.3 74 18 147/71 (96) 96 08/27/20 12:00 97.3 70 18 149/74 (99) 97 08/27/20 11:12 68 20 98 08/27/20 10:07 75 149/72 08/27/20 09:00 Room Air 08/27/20 08:00 98.3 75 18 149/72 (97) 96 08/27/20 04:00 98.4 68 18 153/75 (101) 94 08/27/20 00:00 98.1 76 17 151/77 (101) 97 08/26/20 21:00 Room Air 08/26/20 20:00 98.4 70 17 141/74 (96) 99 General Appearance: no apparent distress, alert Neck: supple Cardiovascular: normal rate Respiratory/Chest: crackles/rales Abdomen: normal bowel sounds, soft Extremities: no swelling Intake and Output 08/26/20 08/27/20 19:00 07:00 Intake Total 300 ml Output Total 150 ml Balance 150 ml Intake Oral 100 ml IV Total 200 ml Output Urine Total 150 ml # Voids 3 Laboratory Tests Test 08/27/20 04:00 Sodium Level 138 MMOL/L (136-145) Potassium Level 3.6 MMOL/L (3.5-5.1) Chloride Level 106 MMOL/L (98-107) Carbon Dioxide Level 22 MMOL/L (21-32) Anion Gap 10 mmol/L (5-15) Blood Urea Nitrogen 12 mg/dL (7-18) Creatinine 1.0 MG/DL (0.55-1.30) Estimat Glomerular Filtration Rate > 60 mL/min (>60) Glucose Level 142 MG/DL (74-106) H Calcium Level 8.3 MG/DL (8.5-10.1) Jesus Alberto Alvarez MD Aug 27, 2020 18:36
--- NOTE | 2020-08-27 19:30 | NUR ---
NURSE HAND-OFF: Important Events on Shift: Pt ambulated w/PT a couple of times and w/RN once; pt took pain meds and was much more comfortable; still nauseated w/PO med intake; pt still not passing gas. Patient Status: Stable Diet: NPO except PO meds w/sips of water Pending Orders: None Pending Results/Labs:None Pending MD notification:None Latest Vital Signs: Temperature 98.3 , Pulse 74 , B/P 147 /71 , Respiratory Rate 18 , O2 SAT 96 , Room Air, O2 Flow Rate 3 . Vital Sign Comment: Stable Latest Ogden Fall Score: 40 Fall Risk: Medium Risk Safety Measures: Call light Within Reach, Bed Alarm Zone 1, Side Rails Side Rails x2, Bed position Low and Locked. Fall Precautions: Yellow Socks Patient Fall Education Report given to SHA Caputo.
[2020-08-27 20:00] VITALS: BP 144/70
--- NOTE | 2020-08-27 20:00 | NUR ---
NURSES NOTE: Received report from SHA Root. Rounds made. Pt is in bed, A/OX4. No s/s of distress. Pt states she has pain 6/10 in abdominal area and lower back. AM nurse agrees to administer pain meds. 2mg morphine IM given by day shift nurse. F/U done by NOC nurse. Pt states medication was effective. Breathing is even and unlabored on RA. Dressing, anterior lower abdomen and posterior lower back are both clean, dry and intact. IV site, L FA patent infusing IVF. All due medications will be administered. Bed at lowest level, call light within reach. Pt will continue to be monitored.
[2020-08-28] MEDS: D5 1/2NS 1,000 ML IV SCH ×3 (00:01→15:48)
[2020-08-28 04:00] VITALS: BP 158/77
[2020-08-28] MEDS: Morphine Sulfate 2mg/ml Inj(IV/IM USE ONLY) IM PRN ×2 (04:38→09:12)
--- NOTE | 2020-08-28 06:44 | NUR ---
NURSE HAND-OFF: Important Events on Shift:[URQ bowel sounds only. No gas passed. Pt encouraged to take pain meds ATC to improve her mobility. IV infiltrated. Attempted to start another one x3 RN. Pt request to have day shift attempt as she was getting nervous from multiple sticks. ] Patient Status: [stable] Diet: [npo ice chips sips of water with meds] Pending Orders: [none] Pending Results/Labs:[none] Pending MD notification:[none] Latest Vital Signs: Temperature 98.0 , Pulse 83 , B/P 139 /86 , Respiratory Rate 18 , O2 SAT 97 , Room Air, O2 Flow Rate . Vital Sign Comment: [WNL] Latest Ogden Fall Score: 85 Fall Risk: High Risk Safety Measures: Call light Within Reach, Bed Alarm Zone 1, Side Rails Side Rails x2, Bed position Low and Locked. Fall Precautions: Yellow Socks Yellow Gown Door Sign Patient Fall Education Report given to [].
--- NOTE | 2020-08-28 07:30 | NUR ---
NURSE NOTES: Report received from Patito DALTON, rounds made. Patient sleeping in semi fowlers position. No distress on RA. Respirations even/unlabored. No IV access. Bilateral SCDs on. Call light in reach, bed in lowest position, will continue to monitor.
--- NOTE | 2020-08-28 07:41 | NUR ---
HAND OFF: Report given to fer Banks
[2020-08-28 08:00] VITALS: BP 130/73
--- NOTE | 2020-08-28 08:40 | NUR ---
NURSE NOTES: Patient AOx4, calm, pleasant, up with PT to bathroom. Pain = "soreness" to surgical site 04/25, will medicate with MS 4 mg IM as ordered. Patient ambulating in halls with PT wearing lumbar brace, gait steady, slow. Bowel sounds absent, denies flatulence/nausea. Encouraged IS and mobility, verbalized understanding. Lower anterior abdominal and lower posterior back dressings CDI.
[2020-08-28] MEDS: Topiramate 100mg tab ORAL SCH (09:11)
[2020-08-28] MEDS: Docusate 100mg cap ORAL SCH ×2 (09:11→18:56)
--- NOTE | 2020-08-28 10:53 | Pain Management Progress Note ---
Allergies: Coded Allergies: No Known Allergies (Unverified , 08/26/20) Vitals Vital Signs Date Time Temp Pulse Resp B/P (MAP) Pulse Ox O2 Delivery O2 Flow Rate FiO2 08/28/20 09:11 102 130/73 08/28/20 08:00 99.7 102 16 130/73 (92) 95 08/28/20 04:00 97.5 74 16 158/77 (104) 96 Medications Current Medications Acetaminophen (Tylenol) 650 mg Q4H PRN ORAL For Headache Last administered on 08/27/20at 13:23; Start 08/26/20 at 15:15; Stop 09/25/20 at 15:14 Acetaminophen (Tylenol) 650 mg Q6H PRN ORAL Temp >100.5; Start 08/26/20 at 18:30; Stop 09/25/20 at 18:29 Acetaminophen/ Butalbital/ Caffeine (Fioricet) 1 tab Q8H PRN ORAL Headache; Start 08/26/20 at 18:30; Stop 09/25/20 at 18:29 Al Hydroxide/Mg Hydroxide (Mylanta) 30 ml Q6H PRN ORAL gerd; Start 08/26/20 at 18:30; Stop 09/25/20 at 18:29 Amlodipine Besylate (Norvasc) 5 mg BID ORAL Last administered on 08/28/20at 09:11; Start 08/26/20 at 18:00; Stop 09/25/20 at 17:59 Dextrose/Sodium Chloride 1,000 ml @ 125 mls/hr Q8H IV Last administered on 08/28/20at 00:01; Start 08/26/20 at 15:15; Stop 09/25/20 at 15:14 Diphenhydramine HCl (Benadryl) 25 mg Q6H PRN ORAL Itching; Start 08/26/20 at 18:30; Stop 09/25/20 at 18:29 Docusate Sodium (Colace) 100 mg TWICE A DAY ORAL Last administered on 08/17 12/06at 09:11; Start 08/26/20 at 18:00; Stop 09/25/20 at 17:59 Famotidine (Pepcid) 20 mg BID ORAL Last administered on 08/28/20at 09:10; Start 08/27/20 at 09:00; Stop 11/25/20 at 08:59 Lorazepam (Ativan) 0.5 mg Q6H PRN ORAL spasm; Start 08/26/20 at 18:30; Stop 09/02/20 at 18:29 Lorazepam (Ativan) 0.5 mg QHS PRN ORAL Insomnia; Start 08/26/20 at 21:00; Stop 09/02/20 at 20:59 Morphine Sulfate (Morphine Sulfate) 2 mg Q3H PRN IM Moderate Pain (Pain Scale 4-6) Last administered on 08/27/20at 19:26; Start 08/27/20 at 13:04; Stop 09/03/20 at 13:03 Morphine Sulfate (Morphine Sulfate) 4 mg Q3H PRN IM Severe Pain (Pain Scale 7- 10) Last administered on 08/28/20at 09:12; Start 08/26/20 at 18:30; Stop 09/02/20 at 18:29 Ondansetron HCl (Zofran) 4 mg Q4H PRN IVP Nausea & Vomiting Last administered on 08/27/20at 10:06; Start 08/26/20 at 18:30; Stop 09/25/20 at 18:29 Oxycodone HCl (Roxicodone) 5 mg Q3H PRN ORAL Mild Pain (Pain Scale 1-3); Start 08/27/20 at 19:00; Stop 09/03/20 at 18:59 Phenol/Menthol (Chloraseptic) 1 spray Q2H PRN ORAL sore throat Last administered on 08/26/20at 18:37; Start 08/26/20 at 19:30; Stop 11/24/20 at 19:2 9 Topiramate (Topamax) 100 mg DAILY ORAL Last administered on 08/28/20at 09:11; Start 08/27/20 at 09:00; Stop 10/11/20 at 08:59 Plan: Patient seen with daytime nurse Jocelyn & overnight RN Sanjiv. MAR medication list reviewed. I 'insisted' that patient start taking the IM morphine more frequently, as she had been 'laying-around' in bed most of the night. Pt admitted that she was fearful of getting out of bed, which she admitted was due to pain. Pt agreed to use morphine more frequently. After taking the 4mg IM morphine injections this morning, she was able to move out of bed. And I witnessed the patient walking independently with FWW. Slow but steady gait. Pt doesn't appear to be a fall risk. No nausea with morphine; will trial po oxycodone with dinner tonight to test for better tolerability compared to norco. Continue prn ativan, APAP, and morphine. After ALIF, Dr Christian started the patient on clear liquids this am, despite no flatus yet. We will monitor GI recovery closely. Pt lost IV access, and is 'difficult IV stick.' Hopefully, pt can adequately hydrate herself with po intake. GI: No BS No flatus No BM Continue incentive spirometer usage. Continue advancing ambulation with physical therapy as tolerated, with FWW left at bedside to encourage out of bed. SCDs for mechanical prophylaxis against deep venous thrombosis and PEs. Rx will be needed for outpatient pain medication usage-->norco vs percocet, still TBD. Jovanny Reynolds MD Aug 28, 2020 10:53
[2020-08-28 11:48] VITALS: BP 128/70
--- NOTE | 2020-08-28 13:13 | NUR ---
APPLICATION SOFTWARE DEVELOPER NOTE ORDER FOR DME FAXED TO [facility] P [phone] F [phone] PER [facility], ORDER WILL BE DIRECTED TO A VENDOR UPON UR APPROVAL
--- NOTE | 2020-08-28 13:44 | Orthopedic Spine Progress Note ---
Ortho Spine - Progress Note Subjective Symptoms: improved - as compared to pre-op Objective Vital Signs: Last 24 Hour Vital Signs Date Time Temp Pulse Resp B/P (MAP) Pulse Ox O2 Delivery O2 Flow Rate FiO2 08/28/20 11:48 99.7 100 16 128/70 (89) 97 08/28/20 09:11 102 130/73 08/28/20 09:00 Room Air 08/28/20 08:00 99.7 102 16 130/73 (92) 95 08/28/20 04:00 97.5 74 16 158/77 (104) 96 08/27/20 21:00 Room Air 08/27/20 20:00 98.8 82 17 144/70 (94) 96 08/27/20 18:19 74 147/71 08/27/20 16:00 98.3 74 18 147/71 (96) 96 I&O: Intake and Output 08/27/20 08/28/20 19:00 07:00 # Voids 5 4 Wound: clean, intact Drains: none Neuro Status: normal Assessment Procedure Performed: Ant/post fusion L5S1 with decompression Plan Plan: PT, pain management, discharge plan - advance diet Nilesh Christian MD Aug 28, 2020 13:44
--- NOTE | 2020-08-28 15:48 | NUR ---
CASE MANAGEMENT:REVIEW SI;POD #1 ANTERIOR/POSTERIOR FUSION OF L5/S1 WITH DECOMPRESSION 99.7 102 16 158/77 95% ON RA IS;PEPCID PO BID MORPHINE SULFATE IM Q3 PRN TOPAMAX PO QD IVF D5NS @ 125 ML/HR MED SURG STATUS DCP;FROM HOME
[2020-08-28 16:00] VITALS: BP 169/77
--- NOTE | 2020-08-28 16:37 | NUR ---
INSURANCE CLINICAL/REVIEW FAXED TO [facility] [phone]
[2020-08-28] MEDS ORDERED: oxyCODONE 5mg IR tab ORAL SCH (17:00)
--- NOTE | 2020-08-28 18:27 | Cardiology Progress Note ---
Assessment/Plan Assessment/Plan 1. Advanced disc collapse at L5-S1, now status post anterior posterior spinal fusion. 2. Hypertension. 3. Sore throat. 4. Nausea postop, likely secondary to sedation and pain medication. walked 4 time no bm had flatus toelrting clears dvt ppx with pneumatic stocking ambualte with pt ea pain management Subjective Cardiovascular: Denies: chest pain, lightheadedness Respiratory: Denies: shortness of breath Gastrointestinal/Abdominal: Denies: abdominal pain Genitourinary: Denies: burning Objective Last 24 Hour Vital Signs Date Time Temp Pulse Resp B/P (MAP) Pulse Ox O2 Delivery O2 Flow Rate FiO2 08/28/20 16:00 98.7 88 16 169/77 (107) 100 08/28/20 11:48 99.7 100 16 128/70 (89) 97 08/28/20 09:11 102 130/73 08/28/20 09:00 Room Air 08/28/20 08:00 99.7 102 16 130/73 (92) 95 08/28/20 04:00 97.5 74 16 158/77 (104) 96 08/27/20 21:00 Room Air 08/27/20 20:00 98.8 82 17 144/70 (94) 96 General Appearance: no apparent distress, alert Neck: supple Abdomen: normal bowel sounds, non tender, soft Extremities: no swelling Intake and Output 08/27/20 08/28/20 19:00 07:00 # Voids 5 4 Microbiology Date/Time Source Procedure Growth Status 08/26/20 06:45 Nasal Nares MRSA Culture - Final NO METHICILLIN RESISTANT STAPH AUREUS... Complete Jesus Alberto Huizar MD Aug 28, 2020 18:27
[2020-08-28 18:45] VITALS: BP 136/69
--- NOTE | 2020-08-28 19:30 | NUR ---
NURSE HAND-OFF: Important Events on Shift:Flatulence x1, Diet advanced to clear, Ambulated halls/chair/BRP Patient Status: stable Diet: clear Pending Orders: none Pending Results/Labs:none Pending MD notification:none Latest Vital Signs: Temperature 98.7 , Pulse 88 , B/P 169 /77 , Respiratory Rate 16 , O2 SAT 100 , Room Air, O2 Flow Rate 3 . Vital Sign Comment: none Latest Ogden Fall Score: 60 Fall Risk: High Risk Safety Measures: Call light Within Reach, Bed Alarm Zone 1, Side Rails Side Rails x2, Bed position Low and Locked. Fall Precautions: Yellow Socks Yellow Gown Door Sign Patient Fall Education Report given to Unruly DALTON.
--- NOTE | 2020-08-28 19:30 | NUR ---
NURSE NOTES: Received report from Jocelyn DALTON. Patient seen in bed asleep and in no apparent distress. Will continue to monitor
[2020-08-28] MEDS ORDERED: Milk of Magnesia 30ml Ud ORAL PRN ×2 (19:45→20:15)
[2020-08-28 20:00] VITALS: BP 141/66
--- NOTE | 2020-08-28 23:30 | NUR ---
NURSE NOTES: Patient able to ambulate to the restroom with minimal assist. Patient takes a while to get out of bed but is able to with standby assist. Ambulatory with steady gait. Patient requests some pain medication .Roxicodone given as ordered. Patient was able to void but is still attempting to have a bm. Encouraged to use call light for help
[2020-08-29] VITALS: BP 142/67
[2020-08-29] MEDS: oxyCODONE 5mg IR tab ORAL PRN ×2 (00:10→09:15)
[2020-08-29 04:00] VITALS: BP 138/65
--- NOTE | 2020-08-29 05:08 | Pain Management Progress Note ---
Allergies: Coded Allergies: No Known Allergies (Unverified , 08/26/20) Vitals Vital Signs Date Time Temp Pulse Resp B/P (MAP) Pulse Ox O2 Delivery O2 Flow Rate FiO2 08/29/20 04:00 98.4 80 20 138/65 (89) 97 08/29/20 00:00 99.4 88 20 142/67 (92) 98 Medications Current Medications Acetaminophen (Tylenol) 650 mg Q6H PRN ORAL Temp >100.5; Start 08/26/20 at 18:30; Stop 09/25/20 at 18:29 Acetaminophen/ Butalbital/ Caffeine (Fioricet) 1 tab Q8H PRN ORAL Headache; Start 08/26/20 at 18:30; Stop 09/25/20 at 18:29 Al Hydroxide/Mg Hydroxide (Mylanta) 30 ml Q6H PRN ORAL gerd; Start 08/26/20 at 18:30; Stop 09/25/20 at 18:29 Amlodipine Besylate (Norvasc) 5 mg BID ORAL Last administered on 08/28/20at 18:56; Start 08/26/20 at 18:00; Stop 09/25/20 at 17:59 Diphenhydramine HCl (Benadryl) 25 mg Q6H PRN ORAL Itching; Start 08/26/20 at 18:30; Stop 09/25/20 at 18:29 Docusate Sodium (Colace) 100 mg TWICE A DAY ORAL Last administered on 08/28/20at 18:56; Start 08/26/20 at 18:00; Stop 09/25/20 at 17:59 Famotidine (Pepcid) 20 mg BID ORAL Last administered on 08/28/20at 18:56; Start 08/27/20 at 09:00; Stop 11/25/20 at 08:59 Lorazepam (Ativan) 0.5 mg Q6H PRN ORAL spasm; Start 08/26/20 at 18:30; Stop 09/02/20 at 18:29 Lorazepam (Ativan) 0.5 mg QHS PRN ORAL Insomnia; Start 08/26/20 at 21:00; Stop 09/02/20 at 20:59 Magnesium Hydroxide (Mom) 30 ml BIDPRN PRN ORAL Constipation Last administered on 08/29/20at 04:35; Start 08/28/20 at 20:15; Stop 09/27/20 at 20:14 Morphine Sulfate (Morphine Sulfate) 4 mg Q3H PRN IM Severe Pain (Pain Scale 7- 10) Last administered on 08/28/20at 09:12; Start 08/26/20 at 18:30; Stop 09/02/20 at 18:29 Ondansetron HCl (Zofran) 4 mg Q4H PRN IVP Nausea & Vomiting Last administered on 08/27/20at 10:06; Start 08/26/20 at 18:30; Stop 09/25/20 at 18:29 Oxycodone HCl (Roxicodone) 5 mg Q3H PRN ORAL Mild Pain (Pain Scale 1-3) Last administered on 08/29/20at 00:10; Start 08/27/20 at 19:00; Stop 09/03/20 at 18:59 Phenol/Menthol (Chloraseptic) 1 spray Q2H PRN ORAL sore throat Last administ ered on 08/26/20at 18:37; Start 08/26/20 at 19:30; Stop 11/24/20 at 19:29 Topiramate (Topamax) 100 mg DAILY ORAL Last administered on 08/28/20at 09:11; Start 08/27/20 at 09:00; Stop 10/11/20 at 08:59 Plan: Patient seen with overnight RN Val. Pt is smiling and in good spirits. + flatus. will advance diet as tolerated. MAR medication list reviewed. Patient walking independently AND FREQUENTLY with FWW. Steady gait. Pt doesn't appear to be a fall risk. Trial with oxycodone successful!! Better tolerability compared to norco. Will also continue prn ativan, APAP, and morphine. Rx left for outpatient pain medication usage-->percocet 5/325 # 30. After ALIF, pt is able to adequately hydrate herself with po intake. Adequate urine volume. GI: + BS + flatus No BM; pt requested and took MOM Continue incentive spirometer usage. Still with low grade fevers; spirometer encouraged. Continue advancing ambulation as tolerated. SCDs for mechanical prophylaxis against deep venous thrombosis and PEs Likely d/c to home within next 36 hours. Jovanny Reynolds MD Aug 29, 2020 05:08
--- NOTE | 2020-08-29 06:34 | NUR ---
NURSE HAND-OFF: Important Events on Shift: Patient ambulated to restroom with minimal assist, given oxycodone for pain. Gave MOM as ordered for constipation. Advanced diet as tolerated per Dr Reynolds Patient Status: Stable Diet: Full liquid Pending Orders: [] Pending Results/Labs:[] Pending MD notification:[] Latest Vital Signs: Temperature 98.4 , Pulse 80 , B/P 138 /65 , Respiratory Rate 20 , O2 SAT 97 , Room Air, O2 Flow Rate 3 . Vital Sign Comment: [] Latest Ogden Fall Score: 60 Fall Risk: High Risk Safety Measures: Call light Within Reach, Bed Alarm Zone 1, Side Rails Side Rails x2, Bed position Low and Locked. Fall Precautions: Yellow Socks Yellow Gown Door Sign Patient Fall Education Report given to Jocelyn DALTON
[2020-08-29 08:00] VITALS: BP 148/73
--- NOTE | 2020-08-29 08:50 | Orthopedic Spine Progress Note ---
Ortho Spine - Progress Note Subjective Symptoms: c/o post-op back pain, improved - as compared to pre-op Objective Vital Signs: Last 24 Hour Vital Signs Date Time Temp Pulse Resp B/P (MAP) Pulse Ox O2 Delivery O2 Flow Rate FiO2 08/29/20 04:00 98.4 80 20 138/65 (89) 97 08/29/20 00:00 99.4 88 20 142/67 (92) 98 08/28/20 21:00 Room Air 08/28/20 20:00 99.0 90 20 141/66 (91) 100 08/28/20 18:56 88 169/77 08/28/20 18:45 97 136/69 (91) 08/28/20 16:00 98.7 88 16 169/77 (107) 100 08/28/20 11:48 99.7 100 16 128/70 (89) 97 08/28/20 09:11 102 130/73 08/28/20 09:00 Room Air I&O: Intake and Output 08/28/20 08/29/20 19:00 07:00 Intake Total 1200 ml 800 ml Balance 1200 ml 800 ml Intake Oral 1200 ml 800 ml # Voids 3 2 Wound: clean, intact Drains: none Neuro Status: normal Assessment Procedure Performed: Ant/post fusion L5S1 with decompression Plan Plan: PT, pain management, discharge plan - needs home health Nilesh Christian MD Aug 29, 2020 08:50
[2020-08-29] MEDS: Topiramate 100mg tab ORAL SCH (09:15)
[2020-08-29] MEDS: Docusate 100mg cap ORAL SCH (09:15)
[2020-08-29] MEDS ORDERED: AMLODIPINE BESY10 MG ORAL (09:44)
--- NOTE | 2020-08-29 11:00 | NUR ---
NURSE NOTES: Picked up FWW from [employer]. Delivered to patient's room. Discussed with Dimas JAVIER, he will assemble for patient.
[2020-08-29 12:00] VITALS: BP 149/77
--- NOTE | 2020-08-29 12:01 | NUR ---
DISCHARGE PLANNING: NOTE [facility] FORM SENT TO JAYESH DURAN REQUESTING DME AND HOME HEALTH [facility] T: [phone] JAYESH TO ARRANGE Addendum: 08/29/20 at 1334 by Vilma Doe CM CALL PLACED TO HOME CARE [id number] [phone] ALANNA SMITH IS ARRANGING A HOME HEALTH PROVIDER [address] [facility] [address] IS ARRANGING FOR THE DME TO BE DELIVERED TO HOME Addendum: 08/29/20 at 0007 by Vilma Doe CM [facility] TO DELIVER DME TO [facility] HOME PER MANE Addendum: 08/29/20 at 1557 by Vilma Doe CM SUSANNA LEFT FOR ALANNA SMITH REQUESTING [facility]. AWAITING CALL BACK
--- NOTE | 2020-08-29 13:08 | NUR ---
NURSE NOTES: Spoke with Dr. Christian's office regarding HH arrangement information needed. Spoke with Vilma WELLS, ([facility] [phone]), she will call Dr. Christian's office [phone]) to update with HH arrangements information.
[2020-08-29] MEDS ORDERED: PERCOCET 5-3251 EACH ORAL (15:07)
--- NOTE | 2020-08-29 15:30 | NUR ---
NURSE NOTES: Discharge instructions and RX (Percocet 5/325 mg, filled at [facility] pharmacy/delivered to [facility]) reviewed with patient, verbalized understanding. ID bracelet removed. No IV access. All belongings, discharge instructions, FWW (lumbar brace/cervical collar) and RX medication (Percocet) given to patient. Ambulated down to lobby with FWW, wearing lumbar brace, with RN, in stable condition. Discharged home at 1530.
--- NOTE | 2020-08-31 15:25 | Discharge Summary ---
Discharge Summary Discharge Summary _ DATE OF ADMISSION: 08/26/2020 DATE OF DISCHARGE: 08/29/2020 SURGEON: Dr. Nilesh Christian CO-SURGEON: Dr. Leopoldo Morillo WINEMAKER: Dr. Jovanny Huizar BRIEF HOSPITAL COURSE: Patient is a 60-year-old female, with intractable back pain. She failed several conservative care. Patient has advanced discopathy on L5-S1, mild discopathy at L4-L5. Remainder of disc appeared intact. There is notable L5-S1 neural foraminal stenosis. Patient was admitted on 08/26/2020 and underwent wide and radical anterior discectomy with interbody fusion of L5-S1. Surgery was performed with Dr. Leopoldo Morillo who did the anterior retroperitoneal exposure of L5-S1 vertebral interspace, right retroperitoneal approach. She tolerated procedure well. Surgery was uneventful. Post-operatively, patient was admitted for post-op care. She was closely followed by scroll shear operator and painting contractor. She was placed on SCDs for DVT prophylaxis and was encouraged use of incentive spirometer. Patient was given pain management. She was seen by PT. she was kept on n.p.o. until return of normal bowel function. Diet was advanced. Incision was clean, dry and intact. Patient was ambulating well with good pain control and was tolerating diet. Patient was eventually cleared for discharge home. FINAL DIAGNOSES: L5-S1 discopathy with advanced discogenic collapse with up-down neural foraminal stenosis. PROCEDURE: 1. Wide and radical diskectomy anteriorly, L5-S1 with interbody fusion using 4WEB structural cage. 2. Use of local autograft. 3. Use of Signafuse bone graft substitute. 4. Anterior instrumentation using anterior plate. 5. Use of fluoroscopy. 6. Indirect decompression of neural foramen at L5-S1. (Refer to Operative Report) DISCHARGE DISPOSITION: Patient was discharged home with home health. DISCHARGE MEDICATIONS: Refer to Medication Reconciliation Sheet. DISCHARGE INSTRUCTIONS: Post-op instructions given. Follow-up in a week. I have been assigned to complete a DC summary on this account, I was not involved with the patient's management.--RASHAAD Vogel Jacqueline Robles NP Aug 31, 2020 15:25
== END 2020-08-29 15:32 | disposition home health service (06) | DRG 455 ==
LOC: SDSOVERFLO 06:14 → 3E 14:20
PROC: 0SG30K1 Fusion of Lumbosacral Joint with Nonautologous Tissue Substitute, Posterior Approach, Posterior Column, Open Approach (ICD-10-PCS; principal; 2020-08-26 08:00)
PROC: 0ST40ZZ Resection of Lumbosacral Disc, Open Approach (ICD-10-PCS; principal; 2020-08-26 08:00)
PROC: 0SG30A0 Fusion of Lumbosacral Joint with Interbody Fusion Device, Anterior Approach, Anterior Column, Open Approach (ICD-10-PCS; principal; 2020-08-26 08:00)
PROC: 4A11X4G Monitoring of Peripheral Nervous Electrical Activity, Intraoperative, External Approach (ICD-10-PCS; principal; 2020-08-26 08:00)
DX: M51.17 Intervertebral disc disorders with radiculopathy, lumbosacral region (principal); M48.07 Spinal stenosis, lumbosacral region; M53.2X7 Spinal instabilities, lumbosacral region; I10 Essential (primary) hypertension; J02.9 Acute pharyngitis, unspecified; R11.0 Nausea; E66.9 Obesity, unspecified; Z68.37 Body mass index [BMI] 37.0-37.9, adult; G89.18 Other acute postprocedural pain
CPT/HCPCS: 36415; 72020; 76000; 80048; 86850; 86900; 86901; 87081; 94003; 94150; J2250; J2405; J7030; U0002